=== PATIENT | female | born 1990 | race Caucasian/White ===

== ENCOUNTER 2017-06-05 00:43 | Inpatient (IN) | payer OTHER ==
[~2017-06-05] VITALS: Ht 165.1 cm; Wt 101.0 kg
[2017-06-05] VITALS (63 sets, daily range): BP systolic 88–135; BP diastolic 48–92; PULSE 79–115; RESP 15–18; TEMP 97.7–98.3
[2017-06-05] MEDS ORDERED: PREN1CAP28 PO (01:08)
[2017-06-05] MEDS: LACTATED RINGER'S 1000 ML INJ 1,000 ML IV SCH ×3 (01:30→17:30)
[2017-06-05] MEDS ORDERED: MISOPROSTOL 25 MCG SUPP VAGINAL ONE ×2 (01:30→06:00)
[2017-06-05] MEDS ORDERED: ONDANSETRON HCL 4 MG/2 ML VIAL IV PUSH PRN (01:30)
[2017-06-05] MEDS ORDERED: LACTATED RINGER'S 1000 ML BOLUS IV PRN (01:30)
[2017-06-05] MEDS ORDERED: NS 500 ML BOLUS IV PRN (01:30)
[2017-06-05] MEDS ORDERED: MINERAL OIL 10 ML VIAL TOPICAL PRN (01:30)
[2017-06-05] MEDS ORDERED: CITRIC ACID-SODIUM CITRATE LIQ 30 ML UDC PO SCH (01:30)
[2017-06-05] MEDS ORDERED: LIDOCAINE HCL 1% 50 ML VIAL I-DERMAL PRN (01:30)
[2017-06-05] MEDS ORDERED: OXYTOCIN 30 UNITS 500ML PREMIX IV ONE (01:30)
[2017-06-05] MEDS ORDERED: LIDOCAINE HCL 1% 50 ML VIAL INFIL PRN (01:30)
[2017-06-05] MEDS ORDERED: NS 1000 ML IV PRN (01:30)
[2017-06-05 01:47] LABS: AUTOMATED NEUTROPHIL # 9.1 TH/MM3 (1.8-7.7); BASOPHIL # 0.1 TH/MM3 (0-0.2); BASOPHIL % 0.5 % (0.0-2.0); EOSINOPHIL # 0.4 TH/MM3 (0-0.4); EOSINOPHIL % 3.3 % (0.0-4.0); HEMATOCRIT 32.2 % (35.0-46.0); HEMO FLAGS DIFF FINAL; LYMPH % 16.2 % (9.0-44.0); LYMPHOCYTE # 2.1 TH/MM3 (1.0-4.8); MEAN CELL VOLUME 88.7 FL (80.0-100.0); MEAN CORPUSCULAR HEMOGLOBIN 28.7 PG (27.0-34.0); MEAN CORPUSCULAR HGB CONC 32.3 % (32.0-36.0); MONO % 9.1 % (0.0-8.0); NEUT % 70.9 % (16.0-70.0); PLATELET COUNT 286 TH/MM3 (150-450); RED BLOOD COUNT 3.63 MIL/MM3 (4.00-5.30); RED CELL DISTRIBUTION WIDTH 14.6 % (11.6-17.2); WHITE BLOOD COUNT 12.8 TH/MM3 (4.0-11.0)
[2017-06-05 01:51] LABS: BLOOD, URINE SMALL (NEG); GLUCOSE,URINE NEG (NEG); KETONE, URINE NEG (NEG); MUCUS URINE FEW /lpf (OCC); NITRITE,URINE NEG (NEG); SQUAMOUS EPITHELIAL CELL URINE 8 /hpf (0-5); URINE COLOR YELLOW (YELLW/STRAW)
[2017-06-05 01:52] LABS: COMMENT (UR) CULT NOT INDICATED; CULTURE IF INDICATED CULT NOT INDICATED
[2017-06-05] MEDS: LACTATED RINGER'S 1000 ML IV SCH ×2 (01:57→20:25)
--- NOTE | 2017-06-05 07:59 | MH ---
cc: DELFIN MESSINA M.D. DATE OF ADMISSION 06/05/2017 DATE OF : 1990 PATIENT HISTORY The patient is a 27-year-old female, 1, para 0, whose last menstrual period was August 29, 2016, estimated date of confinement June 05, 2017 confirmed by early first trimester ultrasound and follow-up exams and ultrasounds for growth. The estimated weight on her exam approximately 3 weeks ago at 37 weeks was 7 pounds 8 ounces. The patient is admitted for induction of labor with Cervidil. OBSTETRICAL HISTORY The patient's group-B strep is negative. Blood type is A+. No significant complicating issue during her care. ALLERGIES She is allergic to PENICILLIN. PAST MEDICAL HISTORY She denies any systemic or chronic disease states. PAST SURGICAL HISTORY Left knee arthroscopy in the past. SOCIAL HISTORY She is , fully employed. Denies use of alcohol, tobacco or illicit substances. FAMILY HISTORY Noncontributory. PHYSICAL EXAMINATION GENERAL: The patient is a well-appearing, well-nourished female in no acute distress. VITAL SIGNS: Stable. Blood pressure is 108/80. heart tones in the 140s. The patient weighs 223 pounds and is 5 feet 4 inches tall. HEENT: No adenopathy or thyromegaly. NECK: Supple. Full range of motion. LUNGS: Clear in all uribe. CARDIAC: Regular rhythm. ABDOMEN: Gravid, full-term. Fundal height 41 weeks. CERVIX: The patient's cervix is soft, mid position, 50-60% effaced, -2 station, 1 cm, vertex. EXTREMITIES: Symmetrical. Full range of motion. No cyanosis, clubbing or edema. NEUROLOGIC: Grossly intact. Nonfocal. ASSESSMENT AND PLAN Patient at 40 weeks gestation, Bacon's score of 6, for Cervidil induction. The patient's group-B strep status is negative. Estimated weight is approximately 8+ pounds. Delfin Messina MD SJAna Paula/NELIA /2:44 PM /8:02 AM
[2017-06-05] MEDS ORDERED: OXYTOCIN 30 UNITS-500ML PREMIX 500 ML IV SCH (11:15)
[2017-06-05] MEDS ORDERED: ePHEDrine/NS 25 MG/5 ML SYR ONE (18:36)
[2017-06-05] MEDS ORDERED: fentaNYL 2MCG-BUPIV 0.125% INJ 100 ML ONE (18:36)
[2017-06-05] MEDS ORDERED: fentaNYL 2MCG-BUPIV 0.125% 100 ML EPIDURAL SCH (20:00)
[2017-06-05] MEDS ORDERED: NO SYSTEM NARCOTICS PRN (20:00)
[2017-06-05] MEDS ORDERED: ePHEDrine/NS 25 MG/5 ML SYR IV PUSH PRN (20:00)
[2017-06-05] MEDS ORDERED: DO NOT ADMINISTER ANTICOAGULANTS PRN (20:00)
[2017-06-06] VITALS (33 sets, daily range): BP systolic 93–174; BP diastolic 41–78; PULSE 88–109; RESP 14–20; TEMP 97.1–98.8; O2SAT 99
[2017-06-06] MEDS: LACTATED RINGER'S 1000 ML INJ 1,000 ML IV SCH ×5 (04:38→20:34)
[2017-06-06] MEDS ORDERED: LIDOCAINE 2%/EPINEPHrine PF 1:200,000 20ML SDV ONE (05:24)
[2017-06-06] MEDS ORDERED: CLINDAMYCIN PHOS 600 MG/4 ML VIAL ONE (05:27)
[2017-06-06] MEDS ORDERED: CLINDAMYCIN 600 MG/NS 100 ML IV SCH ×2 (05:30)
[2017-06-06] MEDS ORDERED: CITRIC ACID-SODIUM CITRATE LIQ 30 ML UDC PO SCH (05:30)
[2017-06-06] MEDS: LACTATED RINGER'S 1000 ML IV SCH ×4 (05:30→17:30)
[2017-06-06] MEDS ORDERED: LACTATED RINGER'S 1000 ML IV ONE (05:30)
[2017-06-06] MEDS ORDERED: SODIUM CHLORIDE 0.9% FLUSH 10 ML FLUSH IV FLUSH PRN (05:45)
[2017-06-06] MEDS ORDERED: KETOROLAC TROMETHAMINE 60 MG/2 ML (IM) VIAL IM PRN (05:45)
[2017-06-06] MEDS ORDERED: OXYTOCIN 30 UNITS-500ML PREMIX 500 ML IV ONE (05:45)
[2017-06-06] MEDS ORDERED: ACETAMINOPHEN 325 MG TAB PO PRN (05:45)
[2017-06-06] MEDS ORDERED: ONDANSETRON HCL 4 MG/2 ML VIAL IV PUSH PRN (05:45)
[2017-06-06] MEDS ORDERED: SIMETHICONE 80 MG CHEWABLE TAB PO PRN (05:45)
--- NOTE | 2017-06-06 06:23 | PD.OB.DELI ---
Procedure Note Section Procedure Performed by Delfin Che Procedure: Primary Low Transverse Sec Indication for delivery: malposition (OP) Previous condition: None Informed consent obtained: For anesthesia, For procedure Confirmed correct: Patient, Procedure, Site, Time-out taken Anesthesia: Epidural Medication prior to procedure: As documented in eMAR Monitoring during procedure: Blood pressure monitoring, campus monitor, doppler, monitor, Pulse oximetry Urinary catheter: Inserted using sterile technique, To dependent drainage Sterile preparation: Duraprep, In usual fashion Operative Features Skin Incision: Pfannenstiel Uterine Incision: Low transverse w/knife / scissors Membranes Ruptured: Previously (clear) Delivery date: Jun 06, 2017 Delivery time: 05:47 Delivery of infant: Uneventful Infant: Male One Minute : 8 Five Minute : 8 Weight: 9/3 Status of : Viable, Cord blood Placenta delivered: Intact Medications: Antibiotics, Oxytocin Estimated blood loss: 500 Procedure tolerated: Well Maternal Condition: Stable Condition: Stable Delfin Che MD Jun 06, 2017 06:23
--- NOTE | 2017-06-06 06:53 | MP ---
cc: DELFIN MESSINA DATE OF SURGERY 06/06/2017 PREOPERATIVE DIAGNOSIS 40-week intrauterine gestation with cephalopelvic disproportion, failure to progress, persistent occiput posterior position. PROCEDURE Primary low transverse section delivery of viable male infant. POSTOPERATIVE DIAGNOSIS 40-week intrauterine gestation with cephalopelvic disproportion, failure to progress, persistent occiput posterior position. SURGEON Delfin Messina MD ANESTHESIA Epidural reinforcement ESTIMATED BLOOD LOSS 500 cc DRAINS Chavez to gravity OPERATIVE FINDINGS A male infant delivered OP, clear fluid, intact placenta, three-vessel cord. 's were 8 at one-minute, 8 at five, and the baby weighed 9 pounds, 3 ounces. INDICATIONS FOR PROCEDURE The patient was brought in for induction at term 40 weeks. She progressed to 6 cm and despite adequate uterine contractions documented by intrauterine pressure catheter, she failed to progress despite adequate contractions. Decision was then to proceed with operative delivery by section. The patient received clindamycin IV prophylactically due to penicillin allergy. PROCEDURE The patient was taken to the operating room in stable condition, underwent reinforcement of her epidural with good result. She was prepped and draped. Chavez was inserted previously draining clear urine. Sequential's were placed the lower extremities for VTE prophylaxis. She had excellent pain control. Time-out was conducted and agreed by all present in the room. The patient was adequate prepped and draped. The incision was made in a Pfannenstiel type manner, carried through the skin with a #10 blade down through subcutaneous layer sharply to the fascia which was scored sharply and extended sharply laterally. Dissection of the rectus fascia from the muscle was accomplished by a combination of monopolar cautery and blunt dissection. The rectus muscle was in the midline. The peritoneum was identified and opened sharply. A bladder blade was placed over the pubic symphysis. The lower uterine segment was dissected opening peritoneum and then making a transverse incision in the lower uterine segment with clear fluid. The was delivered head first without difficulty and then oropharyngeal suction was performed. The was delivered in total on the operative field with good tone and cry. The cord was doubly clamped and cut and the infant was taken to the isolette by the nursery staff. Cord samples obtained for typing. Placenta was removed intact and placed in a sterile bag for donation. The uterus was ana. She was receiving Pitocin. Exploration of the uterine cavity was clear. The uterus was then closed with a double layer first as a running locking suture of 0 Monocryl followed by a second imbricating suture of 0 Monocryl. Examination of the adnexa were normal. The pelvis was irrigated and all free blood and clot was aspirated. Re-examination of the incision site was dry. No hematoma. Full count was made and correct. The peritoneum was then closed with a running suture of 2-0 Monocryl. The muscles were approximated loosely with an interrupted mattress suture of 2-0 Monocryl. The fascia was then closed with 0 Vicryl in a simple running fashion and then the subcutaneous space was closed with a running suture of 2-0 Monocryl. Behzad were used to reapproximate the skin edge. Dressing was applied. The final counts were correct. The patient was stable. The was doing well in the nursery. MD ARGENIS Garay/RICHARD /6:31 AM /6:41 AM
[2017-06-06] MEDS ORDERED: KETOROLAC TROMETHAMINE 30 MG/ML (IVP) VIAL ONE (07:15)
[2017-06-06] MEDS ORDERED: EPIDURAL-DIPHENHYDRAMINE HCL 50 MG/ML VIAL IV PUSH PRN (08:45)
[2017-06-06] MEDS ORDERED: EPIDURAL-NALOXONE HCL 0.4 MG/ML AMP IV PUSH PRN (08:45)
[2017-06-06] MEDS ORDERED: EPIDURAL-NO SYSTEMIC NARCOTICS PRN (08:45)
[2017-06-06] MEDS ORDERED: EPIDURAL-DIPHENHYDRAMINE HCL 50 MG CAP PO PRN (08:45)
[2017-06-06] MEDS ORDERED: EPIDURAL-DO NOT ADMINISTER ANTICOAGULANTS PRN (08:45)
[2017-06-06] MEDS: SODIUM CHLORIDE 0.9% FLUSH 10 ML FLUSH IV FLUSH SCH (09:00)
[2017-06-06] MEDS ORDERED: CLINDAMYCIN INJ 600 MG in SODIUM CHLORIDE 0.9% INJ 50 ML IV SCH (11:30)
[2017-06-06] MEDS: CLINDAMYCIN INJ 600 MG in SODIUM CHLORIDE 0.9% INJ 50 ML IV SCH ×2 (15:35→21:11)
[2017-06-06] MEDS ORDERED: OXYTOCIN 30 UNITS-500ML PREMIX 500 ML IV PRN (15:45)
[2017-06-06] MEDS: IBUPROFEN 600 MG TAB PO PRN (19:38)
[2017-06-06] MEDS: oxyCODONE/ACETAMINOPHEN 5 MG/325 MG TAB PO PRN (21:24)
[2017-06-07] MEDS: oxyCODONE/ACETAMINOPHEN 5 MG/325 MG TAB PO PRN ×6 (01:40→21:52)
[2017-06-07] MEDS: IBUPROFEN 600 MG TAB PO PRN ×4 (01:40→21:52)
[2017-06-07 04:33] VITALS: BP 106/61; PULSE 81; RESP 18; TEMP 97.6
[2017-06-07 05:57] LABS: AUTOMATED NEUTROPHIL # 9.7 TH/MM3 (1.8-7.7); BASOPHIL % 0.3 % (0.0-2.0); EOSINOPHIL # 0.2 TH/MM3 (0-0.4); EOSINOPHIL % 1.3 % (0.0-4.0); HEMATOCRIT 29.8 % (35.0-46.0); HEMO FLAGS DIFF FINAL; MEAN CELL VOLUME 90.6 FL (80.0-100.0); MEAN CORPUSCULAR HEMOGLOBIN 29.5 PG (27.0-34.0); MEAN CORPUSCULAR HGB CONC 32.6 % (32.0-36.0); MONO % 9.3 % (0.0-8.0); NEUT % 74.1 % (16.0-70.0); PLATELET COUNT 260 TH/MM3 (150-450); RED BLOOD COUNT 3.29 MIL/MM3 (4.00-5.30); RED CELL DISTRIBUTION WIDTH 14.9 % (11.6-17.2)
[2017-06-07] MEDS: LACTATED RINGER'S 1000 ML IV SCH ×5 (08:10→21:30)
--- NOTE | 2017-06-07 08:17 | HHI.OB ---
Subjective Post Operative Day: 1 Remarks POD#!, stable Objective Vitals/I&O Vital Signs Date Time Temp Pulse Resp B/P (MAP) Pulse Ox O2 Delivery O2 Flow Rate FiO2 06/07/17 04:33 97.6 06/07/17 04:33 81 18 106/61 (76) 06/06/17 23:55 97.1 88 20 06/06/17 23:54 101/60 (74) 06/06/17 20:00 97.9 104 18 06/06/17 20:00 128/74 (92) 06/06/17 17:15 94 16 113/65 (81) 06/06/17 17:15 98.4 06/06/17 13:30 98.6 93 14 116/69 (85) 06/06/17 08:45 98.8 96 16 112/70 (84) Result Diagram: 06/07/17 0524 Objective Remarks GENERAL: Well-nourished, well-developed patient. CARDIOVASCULAR: Regular rate and rhythm without murmurs, gallops, or rubs. RESPIRATORY: Breath sounds equal bilaterally. No accessory muscle use. ABDOMEN/GI: Abdomen soft, non-tender, bowel sounds present. Incision: Clean, dry and intact. Fundus: Firm, non-tender at umbilicus. GENITOURINARY: Light to moderate bleeding. EXTREMITIES: No cyanosis or edema, non-tender, without signs of DVT. Medications and IVs Current Medications Medications (Trade) Dose Ordered Sig/[place] Route Start Time Stop Time Status Last Admin Lactated Ringer's 1,000 ml @ 125 mls/hr Q8H IV 06/05/17 01:30 06/06/17 04:38 Lactated Ringer's 1,000 ml @ 125 mls/hr Q8H IV 06/05/17 01:30 06/05/17 20:25 Lactated Ringer's 1,000 ml @ 3,000 mls/hr BOLUS PRN IV 06/05/17 01:30 Sodium Chloride 500 ml @ 1,000 mls/hr BOLUS PRN IV 06/05/17 01:30 Sodium Chloride 1,000 ml @ 100 mls/hr Q10H PRN IV 06/05/17 01:30 (Bicitra Liq) 30 ml SOD STRIPPER PO 06/05/17 01:30 06/08/17 01:29 (Zofran Inj) 4 mg Q6H PRN IV PUSH 06/05/17 01:30 (fentaNYL INJ) 50 mcg Q1H PRN IV PUSH 06/05/17 01:30 (fentaNYL INJ) 100 mcg Q1H PRN IV PUSH 06/05/17 01:30 06/05/17 17:43 (Muri-Lube Oil) 10 ml UNSCH PRN TOPICAL 06/05/17 01:30 Oxytocin 500 ml @ 0 mls/hr TITRATE IV 06/05/17 11:15 06/05/17 11:56 Fentanyl/ Bupivacaine HCl 100 ml @ 0 mls/hr TITRATE EPIDURAL 06/05/17 20:00 06/06/17 00:28 Lactated Ringer's 1,000 ml @ 150 mls/hr Q6H40M IV 06/06/17 05:30 (Bicitra Liq) 30 ml SOD STRIPPER PO 06/06/17 05:30 06/09/17 05:29 Clindamycin Phosphate 600 mg/ Sodium Chloride 104 ml @ 208 mls/hr SOD STRIPPER IV 06/06/17 05:30 06/06/17 05:39 Oxytocin 500 ml @ 100 mls/hr UNSCH X1 PRN IV 06/06/17 15:45 06/07/17 15:44 (NS Flush) 2 ml BID IV FLUSH 06/06/17 09:00 (NS Flush) 2 ml UNSCH PRN IV FLUSH 06/06/17 05:45 (Mylicon Chew) 80 mg QID PRN PO 06/06/17 05:45 (Tylenol) 650 mg Q6H PRN PO 06/06/17 05:45 (Motrin) 600 mg Q6H PRN PO 06/06/17 05:45 06/07/17 01:40 (Percocet 5-325 Mg) 1 tab Q4H PRN PO 06/06/17 05:45 06/07/17 01:40 (Percocet 5-325 Mg) 2 tab Q4H PRN PO 06/06/17 05:45 (Ching-Colace) 2 tab Q12H PRN PO 06/06/17 05:45 (M-M-R Ii Inj) 0.5 ml ONCE ONCE SQ 06/07/17 16:00 06/07/17 16:01 (Boostrix Inj) 0.5 ml ONCE ONCE IM 06/07/17 16:00 06/07/17 16:01 (Zofran Inj) 4 mg Q6H PRN IV PUSH 06/06/17 05:45 Miscellaneous Information NO SYSTEMIC NARCOTICS TO BE GIVEN FO... UNSCH PRN .XX 06/06/17 08:45 06/07/17 08:44 (Narcan Inj) 0.4 mg UNSCH PRN IV PUSH 06/06/17 08:45 06/07/17 08:44 (Benadryl Inj) 25 mg Q6H PRN IV PUSH 06/06/17 08:45 06/07/17 08:44 (Benadryl) 50 mg Q6H PRN PO 06/06/17 08:45 06/07/17 08:44 Miscellaneous Information ALL NURSING DEPARTMENTS UNSCH PRN .XX 06/06/17 08:45 06/07/17 08:44 Assessment/Plan Assessment and Plan POD#!, doing well, plan d/c home day 2-3 Discharge Planning routine Attending Attestation seen by Delfin Palmer MD Jun 07, 2017 08:17
[2017-06-07 08:20] VITALS: BP 107/65; PULSE 88; RESP 20; TEMP 98.4; O2SAT 98
[2017-06-07] MEDS ORDERED: OXYC1TAB63 PO (08:39)
--- NOTE | 2017-06-07 08:40 | HHI.DS ---
Admission Date Jun 05, 2017 at 00:43 Admitting Diagnosis Diagnosis: Delivery Date: Jun 06, 2017 : Primary : Male Pt Condition on Discharge: Good Discharge Disposition: Discharge Home Discharge Instructions Diet Instructions: As Tolerated, No Restrictions Activities You Can Perform: Shower Only-No Bath Activities to Avoid: Prolonged Standing, Strenuous Activity, Driving, Sexual Activity Delfin Che MD Jun 07, 2017 08:40
[2017-06-07] MEDS: SODIUM CHLORIDE 0.9% FLUSH 10 ML FLUSH IV FLUSH SCH ×2 (09:00→21:00)
[2017-06-07] MEDS: LACTATED RINGER'S 1000 ML INJ 1,000 ML IV SCH ×2 (09:30→17:30)
[2017-06-07] MEDS: DOCUSATE SODIUM 50 MG/SENNA 8.6 MG TAB PO PRN (09:36)
[2017-06-07] MEDS ORDERED: MEASLES, MUMPS, RUBELLA VACCINE 0.5 ML VIAL SQ ONE (16:00)
[2017-06-07] MEDS ORDERED: DIPHTH/TETANUS/ACEL PERTUSSIS (BOOSTER) 0.5 ML VIAL/PFS IM ONE (16:00)
[2017-06-07 21:50] VITALS: BP 109/87; PULSE 87; RESP 16; TEMP 98.5
[2017-06-08] MEDS: LACTATED RINGER'S 1000 ML INJ 1,000 ML IV SCH (01:30)
[2017-06-08] MEDS: LACTATED RINGER'S 1000 ML IV SCH ×2 (01:30→04:10)
[2017-06-08] MEDS: IBUPROFEN 600 MG TAB PO PRN ×2 (03:18→09:24)
[2017-06-08] MEDS: oxyCODONE/ACETAMINOPHEN 5 MG/325 MG TAB PO PRN ×2 (03:18→09:24)
[2017-06-08 08:00] VITALS: BP 112/67; PULSE 86; RESP 18; TEMP 98
[2017-06-08] MEDS: DOCUSATE SODIUM 50 MG/SENNA 8.6 MG TAB PO PRN (09:25)
== END 2017-06-08 11:31 | disposition home or self-care (01) | DRG 766 ==
LOC: H2EB 00:43 → H1EA 06-06 07:52
PROVIDERS: ADMIT Obstetrics & Gynecology; ATTEND Obstetrics & Gynecology
PROC: 3E0P7VZ Introduction of Hormone into Female Reproductive, Via Natural or Artificial Opening (ICD-10-PCS; 2017-06-05)
PROC: 10D00Z1 Extraction of Products of Conception, Low, Open Approach (ICD-10-PCS; principal; 2017-06-06)
DX: O33.9 Maternal care for disproportion, unspecified (principal); O32.8XX0 Maternal care for other malpresentation of fetus, not applicable or unspecified; O62.2 Other uterine inertia; Z3A.40 40 weeks gestation of pregnancy; Z37.0 Single live birth; Z88.0 Allergy status to penicillin
CPT/HCPCS: 80307; 81001; 85025; 86850; 86900; 86901; J1885; J2590; J3010; J7120